=== PATIENT | female | born 1955 | race Caucasian/White ===

== ENCOUNTER → 2019-05-20 | Outpatient (CLI) | payer MEDICAID ==
[~2019-05-20] MED LIST: CALC1TAB72 PO; CYAN100049 PO; DULO1CAP6 PO; ESTR625TA PO; KRIL300C PO; LORA1TAB4 PO; OLAN5TAB PO; PHEN15CA PO; SUPETAB25 PO; TIZA4CAP PO; VITA500046 PO; VITA500T PO; XYZA5TAB2 PO
[2019-05-20 18:17] LABS: HEMOGLOBIN A1c 5.4 %
[2019-05-20 18:24] LABS: ALT/SGPT 19 U/L (12-78); BILIRUBIN,DIRECT 0.1 MG/DL (0.0-0.2); BILIRUBIN,TOTAL 0.3 MG/DL (0.2-1.0); BLOOD UREA NITROGEN 11 MG/DL (7-18); CALCIUM LEVEL 9.6 MG/DL (8.8-10.2); CARBON DIOXIDE LEVEL 28 MEQ/L (21-32); CHLORIDE LEVEL 109 MEQ/L (98-107); CHOLESTEROL LEVEL 298 MG/DL (<200); CHOLESTEROL RISK RATIO 3.634 (<5); CREATININE FOR GFR 0.82 MG/DL (0.55-1.30); GLOMERULAR FILTRATION RATE > 60.0 (>45); GLUCOSE, FASTING 104 MG/DL (70-100); HDL CHOLESTEROL 82 MG/DL (>40); LDL CHOLESTEROL 157 MG/DL (<100); NON-HDL-C 216 MG/DL; POTASSIUM SERUM 4.4 MEQ/L (3.5-5.1); SODIUM LEVEL 143 MEQ/L (136-145); TOTAL PROTEIN 7.1 GM/DL (6.4-8.2); TRIGLYCERIDES LEVEL 296 MG/DL (<150)
== END ==
LOC: M PLALAB 13:26
PROVIDERS: ATTEND Psychiatry & Neurology Psychiatry
DX: F33.1 Major depressive disorder, recurrent, moderate (principal); F41.1 Generalized anxiety disorder; F12.20 Cannabis dependence, uncomplicated

== ENCOUNTER → 2019-10-05 | Outpatient (CLI) | payer MEDICAID, OTHER ==
[~2019-10-05] MED LIST changes: +ARIP1TAB4 PO; +BENA25CA4 PO; +CETI-24 PO; +D31000TA2 PO; +LEVOTAB10 PO; +MULTCAP PO; +RA K500C PO; +SUPETAB56 PO; +VITA-243 PO; +VITA500C24 PO; -VITA500T PO; +ZOLO100T PO
== END ==
LOC: M LABSMTC 11:36
PROVIDERS: ATTEND Anesthesiology
DX: Z01.818 Encounter for other preprocedural examination (principal); Z11.59 Encounter for screening for other viral diseases
CPT/HCPCS: C9803; U0003

== ENCOUNTER 2019-10-10 11:42 | Day surgery (SDC) | payer OTHER ==
[~2019-10-10] VITALS: Ht 154.9 cm; Wt 84.4 kg
[~2019-10-10 11:42] MED LIST changes: +NS 1,000 ML IV ONE
[2019-10-10] MEDS ORDERED: propofoL 200 MG/20 ML VIAL As Ordered ONE ×2 (12:01→12:47)
[2019-10-10] MEDS ORDERED: LIDOCAINE 2% 100MG/5ML SDV (FOR ANES.) As Ordered ONE (12:01)
--- NOTE | 2019-10-10 13:00 | ROOR ---
Patient Name: Selina Andrade Procedure Date: 10/10/2019 12:38 PM Date of : 1955 Age: 64 Room: [facility] Gender: Female Note Status: Finalized Procedure: Colonoscopy Indications: Colon cancer screening in patient at increased risk: Family history of colorectal cancer in multiple 2nd degree relatives Providers: Tee MARK MD Referring MD: Dionna Hurd NP Requesting Provider: Medicines: Monitored Anesthesia Care Complications: No immediate complications. Procedure: Pre-Anesthesia Assessment: - The heart rate, respiratory rate, oxygen saturations, blood pressure, adequacy of pulmonary ventilation, and response to care were monitored throughout the procedure. The Colonoscope was introduced through the anus and advanced to the terminal ileum, with identification of the appendiceal orifice and IC valve. The colonoscopy was performed without difficulty. The patient tolerated the procedure well. The quality of the bowel preparation was good. Findings: The perianal and digital rectal examinations were normal. Three sessile polyps were found in the ascending colon. The polyps were diminutive in size. These polyps were removed with a cold snare. Resection and retrieval were complete. A diminutive polyp was found in the sigmoid colon. The polyp was sessile. The polyp was removed with a cold snare. Resection and retrieval were complete. Small Internal Hemorrhoids. The exam was otherwise without abnormality. Impression: - Three diminutive polyps in the ascending colon, removed with a cold snare. Resected and retrieved. - One diminutive polyp in the sigmoid colon, removed with a cold snare. Resected and retrieved. - Small Internal Hemorrhoids. - The colon examination was otherwise normal. Recommendation: - Repeat colonoscopy in 3 years for surveillance. Tee Mark MD Tee MARK MD 10/10/2019 1:00:09 PM Electronically signed by Tee MARK MD Number of Addenda: 0 Note Initiated On: 10/10/2019 12:38 PM Estimated Blood Loss: Estimated blood loss: none.
[2019-10-10 13:30] VITALS: BP 144/90
== END 2019-10-10 13:42 | disposition home or self-care (01) ==
LOC: M OPP 11:42
PROVIDERS: ATTEND Internal Medicine Gastroenterology
DX: Z12.11 Encounter for screening for malignant neoplasm of colon (principal); D12.2 Benign neoplasm of ascending colon; D12.5 Benign neoplasm of sigmoid colon; K64.8 Other hemorrhoids; Z79.899 Other long term (current) drug therapy; Z88.5 Allergy status to narcotic agent; Z91.018 Allergy to other foods; Z87.891 Personal history of nicotine dependence

== ENCOUNTER → 2020-06-12 | Outpatient (REF) | payer OTHER ==
[~2020-06-12] MED LIST changes: -NS 1,000 ML IV ONE
== END ==
LOC: M LAB REF 17:11
PROVIDERS: ATTEND Physician Assistant
DX: D23.62 Other benign neoplasm of skin of left upper limb, including shoulder (principal); L57.0 Actinic keratosis

== ENCOUNTER → 2020-06-16 | Outpatient (CLI) | payer OTHER ==
--- NOTE | 2020-06-16 16:17 | REPMRS ---
Patient History The patient states she has not had a clinical breast exam in over a year. Family history of colorectal cancer at age 50 or over in maternal grandmother, endometrial cancer at age 25 in mother. Digital Woman Screen Mammo: June 16, 2020 - Exam #: [id number] Bilateral CC and MLO view(s) were taken. Technologist: Margarette Desai, Technologist Prior study comparison: May 20, 2019, bilateral digital mammo screening bilat, performed at [facility]. November 02, 2017, bilateral digital mammo screening bilat, performed at [facility]. July 18, 2016, bilateral digital mammo screening bilat, performed at [facility](ye[facility]. FINDINGS: There are scattered fibroglandular densities. The Volpara volumetric breast density category is: B. There is a moderate amount of residual fibroglandular tissue which is fairly symmetric. There is no interval development of dominant mass, architectural distortion, or grouped microcalcification typical of malignancy. There has been no change in the appearance of the mammogram from the prior studies. 3-D tomosynthesis shows no additional findings. Assessment: BI-RADS/ACR category 1 mammogram. Negative Mammogram. Recommendation Routine screening mammogram of both breasts in 1 year (for women over age 40). This patient's [facility] Lifetime Breast Cancer RIsk is estimated at 5.2 %. This mammogram was interpreted with the aid of an FDA-approved computer-aided dectection system. Electronically Signed By: Gianluca Corea MD 06/16/20 [id number]
== END ==
LOC: M WHC 14:43
PROVIDERS: ATTEND Nurse Practitioner Adult Health
DX: Z12.31 Encounter for screening mammogram for malignant neoplasm of breast (principal)

== ENCOUNTER → 2020-07-10 | Outpatient (REF) | payer OTHER, MEDICAID | LOC: M LAB REF 14:20 | PROVIDERS: ATTEND Dermatology | DX: L90.5 Scar conditions and fibrosis of skin (principal) ==

== ENCOUNTER → 2020-12-14 | Outpatient (REF) | payer OTHER, MEDICAID ==
[~2020-12-14] MED LIST changes: +OLAN1TAB16 PO; -OLAN5TAB PO
== END ==
LOC: M LAB REF 19:26
PROVIDERS: ATTEND Physician Assistant
DX: D23.5 Other benign neoplasm of skin of trunk (principal); L57.0 Actinic keratosis

== ENCOUNTER → 2020-12-14 | Outpatient (REF) | payer OTHER, MEDICAID | LOC: M LAB REF 16:23 | PROVIDERS: ATTEND Nurse Practitioner Adult Health | DX: R35.0 Frequency of micturition (principal) ==

== ENCOUNTER → 2021-02-12 | Outpatient (REF) | payer OTHER, MEDICAID ==
[~2021-02-12] MED LIST changes: -PHEN15CA PO; +PHEN15CA6 PO
== END ==
LOC: M LAB REF 16:31
PROVIDERS: ATTEND Dermatology
DX: D76.3 Other histiocytosis syndromes (principal)

== ENCOUNTER → 2021-06-30 | Outpatient (CLI) | payer OTHER ==
[~2021-06-30] MED LIST changes: -D31000TA2 PO; +VITA100093 PO
== END ==
LOC: M WHC 15:41
PROVIDERS: ATTEND Nurse Practitioner Adult Health
DX: Z12.31 Encounter for screening mammogram for malignant neoplasm of breast (principal); Z80.0 Family history of malignant neoplasm of digestive organs; Z80.49 Family history of malignant neoplasm of other genital organs

== ENCOUNTER → 2021-11-19 | Outpatient (CLI) | payer OTHER, MEDICAID ==
[2021-11-19 16:58] LABS: BASO # 0.1 10^3/uL (0.0-0.2); BASO % 0.6 % (0.0-1.0); EOS # 0.2 10^3/uL (0.0-0.5); EOS % 2.5 % (0.0-3.0); HEMATOCRIT 44.6 % (36.0-47.0); HEMOGLOBIN 14.6 g/dl (12.0-15.5); LYMPH # 3.1 10^3/uL (1.5-5.0); LYMPH % 33.9 % (24.0-44.0); MEAN CORPUSCULAR HEMOGLOBIN 29.9 pg (27.0-33.0); MEAN CORPUSCULAR HGB CONC 32.7 g/dl (32.0-36.5); MEAN CORPUSCULAR VOLUME 91.2 fl (80.0-96.0); MONO # 0.5 10^3/uL (0.0-0.8); MONO % 5.2 % (2.0-8.0); NEUTROPHILS # 5.2 10^3/uL (1.5-8.5); NEUTROPHILS % 57.2 % (36.0-66.0); PLATELET COUNT, AUTOMATED 200 10^3/uL (150-450); RED BLOOD COUNT 4.89 10^6/uL (4.00-5.40)
[2021-11-19 17:23] LABS: HEMOGLOBIN A1c 5.3 %
[2021-11-19 17:30] LABS: ALBUMIN 3.6 GM/DL (3.2-5.2); ALT/SGPT 23 U/L (12-78); BILIRUBIN,DIRECT 0.1 MG/DL (0.0-0.2); BILIRUBIN,TOTAL 0.2 MG/DL (0.2-1.0); BLOOD UREA NITROGEN 26 MG/DL (7-18); CALCIUM LEVEL 9.3 MG/DL (8.8-10.2); CARBON DIOXIDE LEVEL 25 MEQ/L (21-32); CHLORIDE LEVEL 110 MEQ/L (98-107); CHOLESTEROL LEVEL 148 MG/DL (<200); CHOLESTEROL RISK RATIO 2.027 (<5); CREATININE FOR GFR 0.97 MG/DL (0.55-1.30); GLOMERULAR FILTRATION RATE > 60.0 (>45); GLUCOSE, FASTING 93 MG/DL (70-100); HDL CHOLESTEROL 73 MG/DL (>40); LDL CHOLESTEROL 49 MG/DL (<100); NON-HDL-C 75 MG/DL; POTASSIUM SERUM 3.8 MEQ/L (3.5-5.1); SODIUM LEVEL 140 MEQ/L (136-145); TOTAL PROTEIN 6.7 GM/DL (6.4-8.2); TRIGLYCERIDES LEVEL 131 MG/DL (<150)
== END ==
LOC: M PLALAB 14:50
PROVIDERS: ATTEND Psychiatry & Neurology Psychiatry
DX: F41.1 Generalized anxiety disorder (principal); F33.1 Major depressive disorder, recurrent, moderate; F12.20 Cannabis dependence, uncomplicated

== ENCOUNTER → 2022-01-07 | Outpatient (CLI) | payer OTHER, MEDICAID | LOC: M WUC 15:46 | PROVIDERS: ATTEND Physician Assistant Medical | DX: M25.531 Pain in right wrist (principal); M19.031 Primary osteoarthritis, right wrist ==

== ENCOUNTER → 2022-06-07 | Outpatient (CLI) | payer MEDICARE, MEDICAID | LOC: M WUC 14:19 | PROVIDERS: ATTEND Nurse Practitioner Family | DX: R06.02 Shortness of breath (principal); R05.9 Cough, unspecified; R09.89 Other specified symptoms and signs involving the circulatory and respiratory systems ==

== ENCOUNTER → 2022-06-08 | Outpatient (REF) | payer MEDICARE, MEDICAID, OTHER | LOC: M LAB REF 14:31 | PROVIDERS: ATTEND Nurse Practitioner Family | DX: R06.02 Shortness of breath (principal); R05.9 Cough, unspecified ==

== ENCOUNTER → 2022-07-11 | Outpatient (REF) | payer MEDICARE, MEDICAID | LOC: M SFHCDERM 17:43 | PROVIDERS: ATTEND Physician Assistant | DX: D22.72 Melanocytic nevi of left lower limb, including hip (principal) ==

== ENCOUNTER → 2022-07-13 | Outpatient (CLI) | payer MEDICARE, MEDICAID | LOC: M WHC 14:00 | PROVIDERS: ATTEND Nurse Practitioner Adult Health | DX: Z12.31 Encounter for screening mammogram for malignant neoplasm of breast (principal) ==

== ENCOUNTER → 2022-08-02 | Outpatient (REF) | payer MEDICARE, MEDICAID, OTHER ==
[~2022-08-02] MED LIST changes: +LORA1TAB23 PO; -LORA1TAB4 PO
== END ==
LOC: M SFHCDERM 13:59
PROVIDERS: ATTEND Physician Assistant
DX: L98.499 Non-pressure chronic ulcer of skin of other sites with unspecified severity (principal); L90.5 Scar conditions and fibrosis of skin

== ENCOUNTER → 2023-01-03 | Outpatient (CLI) | payer MEDICARE, MEDICAID, OTHER | LOC: M WUC 10:55 | PROVIDERS: ATTEND Nurse Practitioner Adult Health | DX: M19.042 Primary osteoarthritis, left hand (principal); M25.532 Pain in left wrist ==

== ENCOUNTER → 2023-01-17 | Outpatient (REF) | payer MEDICARE, MEDICAID, OTHER ==
[2023-01-17 18:58] LABS: HEPATITIS B CORE ANTIBODY IGM NEGATIVE (NEGATIVE)
[2023-01-17 18:59] LABS: HEPATITIS C VIRUS ABY INDEX 0.05 INDEX (<0.8)
[2023-01-17 19:33] LABS: RHEUMATOID FACTOR QUANT 5.7 IU/ML (<14)
== END ==
LOC: M LAB REF 16:40
PROVIDERS: ATTEND Nurse Practitioner Adult Health
DX: M79.642 Pain in left hand (principal); M25.532 Pain in left wrist

== ENCOUNTER → 2023-02-24 | Outpatient (CLI) | payer MEDICARE, MEDICAID ==
[~2023-02-24] MED LIST changes: +ROSU5TAB5 PO; +VRAY1.5C PO
== END ==
LOC: M RAD 13:15
PROVIDERS: ATTEND Physician Assistant Medical
DX: R19.00 Intra-abdominal and pelvic swelling, mass and lump, unspecified site (principal)

== ENCOUNTER 2023-03-02 06:53 | Day surgery (SDC) | payer MEDICARE, MEDICAID ==
[~2023-03-02] VITALS: Ht 154.9 cm; Wt 91.9 kg
[~2023-03-02 06:53] MED LIST changes: +NS 1,000 ML IV ONE
[2023-03-02] MEDS ORDERED: propofoL 200 MG/20 ML VIAL As Ordered ONE ×2 (08:07→08:08)
[2023-03-02] MEDS ORDERED: GLYCOPYRROLATE INJ 0.2 MG/ML 2 ML VIAL As Ordered ONE (08:07)
[2023-03-02 08:21] VITALS: TEMP 97.4
[2023-03-02 08:41] VITALS: BP 120/59; O2SAT 98
== END 2023-03-02 08:54 | disposition home or self-care (01) ==
LOC: M OPP 06:53
PROVIDERS: ATTEND Internal Medicine Gastroenterology
DX: Z86.010 Personal history of colon polyps (principal); Z80.0 Family history of malignant neoplasm of digestive organs; D12.3 Benign neoplasm of transverse colon; D12.8 Benign neoplasm of rectum; K57.30 Diverticulosis of large intestine without perforation or abscess without bleeding; K64.8 Other hemorrhoids; F17.200 Nicotine dependence, unspecified, uncomplicated; Z79.810 Long term (current) use of selective estrogen receptor modulators (SERMs); Z79.891 Long term (current) use of opiate analgesic; Z79.899 Other long term (current) drug therapy; Z88.5 Allergy status to narcotic agent; Z91.018 Allergy to other foods

== ENCOUNTER → 2023-05-15 | Outpatient (CLI) | payer MEDICARE, MEDICAID ==
[~2023-05-15] MED LIST changes: +GASTROGRAFIN SOLUTION 30ML As Ordered ONE; +ISOVUE-370 76% 100ML VIAL As Ordered ONE; -NS 1,000 ML IV ONE
== END ==
LOC: M RAD 13:27
PROVIDERS: ATTEND Nurse Practitioner Family
DX: R10.9 Unspecified abdominal pain (principal)
CPT/HCPCS: 74177; Q9963; Q9967

== ENCOUNTER → 2024-02-09 | Outpatient (CLI) | payer MEDICARE ==
[~2024-02-09] MED LIST changes: -GASTROGRAFIN SOLUTION 30ML As Ordered ONE; -ISOVUE-370 76% 100ML VIAL As Ordered ONE; +ROSU5TAB49 PO; -ROSU5TAB5 PO
== END ==
LOC: M RAD 13:14
PROVIDERS: ATTEND Nurse Practitioner Adult Health
DX: Z12.2 Encounter for screening for malignant neoplasm of respiratory organs (principal); F17.210 Nicotine dependence, cigarettes, uncomplicated

== ENCOUNTER → 2024-06-27 | Outpatient (CLI) | payer MEDICARE | LOC: M RAD 16:59 | PROVIDERS: ATTEND Physician Assistant | DX: J32.8 Other chronic sinusitis (principal) ==

== ENCOUNTER 2024-07-13 17:27 | Emergency (ER) | payer MEDICARE, MEDICAID ==
[~2024-07-13] VITALS: Ht 157.5 cm; Wt 94.1 kg
[2024-07-13 18:28] LABS: VENOUS BASE EXCESS -0.9 (-2.0-2.0); VENOUS HCO3 25.4 MMOL/L (23.0-27.0); VENOUS O2 SATURATION 89.2 % (60.0-80.0); VENOUS PARTIAL PRESSURE CO2 48.1 mmHg (38.0-50.0); VENOUS PARTIAL PRESSURE O2 58.4 mmHg (30.0-50.0); VENOUS STANDARD HCO3 23.6 MMOL/L; VENOUS TOTAL CO2 26.8 MMOL/L (24.0-28.0)
[2024-07-13] MEDS ORDERED: predniSONE 20 MG TAB PO ONE (18:30)
[2024-07-13] MEDS: dexAMETHasone 20MG/5ML VIAL IV ONE (18:35)
[2024-07-13 18:37] LABS: BASO % 0.2 % (0.0-1.0); HEMATOCRIT 36.6 % (36.0-47.0); HEMOGLOBIN 12.7 g/dl (12.0-15.5); LYMPH % 8.2 % (24.0-44.0); MEAN CORPUSCULAR HEMOGLOBIN 30.6 pg (27.0-33.0); MEAN CORPUSCULAR HGB CONC 34.7 g/dl (32.0-36.5); MEAN CORPUSCULAR VOLUME 88.2 fl (80.0-96.0); MONO # 0.6 10^3/uL (0.0-0.8); NEUTROPHILS # 10.2 10^3/uL (1.5-8.5); PLATELET COUNT, AUTOMATED 203 10^3/uL (150-450); RED BLOOD COUNT 4.15 10^6/uL (4.00-5.40); WHITE BLOOD COUNT 11.9 10^3/uL (4.0-10.0)
[2024-07-13 18:57] LABS: CK-MB VALUE MASS < 1.0 NG/ML (<3.6)
[2024-07-13 18:59] LABS: CPK CREATINE PHOSPHOKINASE 173 U/L (34-145); MB/CK RELATIVE INDEX 0.57 (< OR =4)
[2024-07-13 19:00] LABS: ALBUMIN 3.1 G/DL (3.2-5.2); ALKALINE PHOSPHATASE 71 U/L (35-104); ALT/SGPT 20 U/L (7.0-40); AST/SGOT 18 U/L (<34); BILIRUBIN,DIRECT 0.2 MG/DL (<0.4); BILIRUBIN,TOTAL 0.5 MG/DL (0.3-1.2); BLOOD UREA NITROGEN 13 MG/DL (9-23); CALCIUM LEVEL 8.8 MG/DL (8.3-10.6); CARBON DIOXIDE LEVEL 24 MMOL/L (20-31); CHLORIDE LEVEL 102 MMOL/L (98-107); CREATININE FOR GFR 0.76 MG/DL (0.55-1.30); GLOMERULAR FILTRATION RATE 85.8 (>45); GLUCOSE, FASTING 130 MG/DL (74-106); POTASSIUM SERUM 3.9 MMOL/L (3.5-5.1); SODIUM LEVEL 133 MMOL/L (136-145); TOTAL PROTEIN 6.7 G/DL (5.7-8.2)
[2024-07-13 19:01] LABS: THYROXINE (T4) 9.2 UG/DL (4.5-10.9)
[2024-07-13 19:02] LABS: THYROID STIMULATING HORMONE 0.508 uIU/ML (0.55-4.78)
[2024-07-13] MEDS: IPRATROPIUM 0.5MG/ALBUTEROL 2.5MG INH SOL UD 3ML NEB SCH (19:05)
[2024-07-13] MEDS ORDERED: DOXY-442 PO (20:56)
[2024-07-13] MEDS ORDERED: ALBU2.5V10 NEB (20:56)
[2024-07-13] MEDS ORDERED: NEBU1EAC78 MC (20:56)
[2024-07-13] MEDS: DOXYCYCLINE HYCLATE 100MG TABLET PO ONE (20:58)
[2024-07-13] MEDS: AUGMENTIN 875 MG TAB PO ONE (20:58)
[2024-07-13 21:52] VITALS: BP 131/71; TEMP 98.6; O2SAT 91
== END 2024-07-13 21:54 | disposition home or self-care (01) ==
LOC: M ED 17:27
DX: J44.1 Chronic obstructive pulmonary disease with (acute) exacerbation (principal); J18.9 Pneumonia, unspecified organism; F17.200 Nicotine dependence, unspecified, uncomplicated; Z79.899 Other long term (current) drug therapy; Z88.5 Allergy status to narcotic agent; Z88.8 Allergy status to other drugs, medicaments and biological substances; Z91.018 Allergy to other foods
CPT/HCPCS: 71045; 80048; 80076; 82550; 82553; 82803; 83605; 83880; 84436; 84443; 84484; 85025; 87040; 87486; 87581; 87633; 87798; 93005; 93041; 94640; 94760; 96374; 99284; J1100

== ENCOUNTER 2024-07-18 16:00 | Inpatient (IN) | payer MEDICARE, MEDICAID ==
[~2024-07-18] VITALS: Ht 157.5 cm; Wt 92.4 kg
[~2024-07-18 16:00] MED LIST changes: +ALBU2.5V10 NEB; +DOXY-442 PO; +NEBU1EAC78 MC
[2024-07-18 16:52] LABS: BASO # 0.1 10^3/uL (0.0-0.2); BASO % 0.4 % (0.0-1.0); EOS # 0.1 10^3/uL (0.0-0.5); EOS % 0.5 % (0.0-3.0); HEMATOCRIT 36.5 % (36.0-47.0); HEMOGLOBIN 12.6 g/dl (12.0-15.5); LYMPH # 2.3 10^3/uL (1.5-5.0); LYMPH % 11.9 % (24.0-44.0); MEAN CORPUSCULAR HEMOGLOBIN 29.9 pg (27.0-33.0); MEAN CORPUSCULAR HGB CONC 34.5 g/dl (32.0-36.5); MEAN CORPUSCULAR VOLUME 86.7 fl (80.0-96.0); MONO # 1.2 10^3/uL (0.0-0.8); MONO % 6.3 % (2.0-8.0); NEUTROPHILS # 14.5 10^3/uL (1.5-8.5); NEUTROPHILS % 76.2 % (36.0-66.0); PLATELET COUNT, AUTOMATED 281 10^3/uL (150-450); RED BLOOD COUNT 4.21 10^6/uL (4.00-5.40)
[2024-07-18 17:05] LABS: INR 1.16; PROTHROMBIN TIME 15.1 SECONDS (12.5-14.5)
[2024-07-18] MEDS ORDERED: ISOVUE-370 76% 100ML VIAL As Ordered ONE (17:08)
[2024-07-18] MEDS: ALBUTEROL SULFATE 2.5MG/0.5ML INH CONCENTRATE NEB SOLN INH ONE (17:10)
[2024-07-18] MEDS: IPRATROPIUM 0.5MG/ALBUTEROL 2.5MG INH SOL UD 3ML NEB ONE (17:10)
[2024-07-18 17:27] LABS: ALBUMIN 2.5 G/DL (3.2-5.2); ALKALINE PHOSPHATASE 97 U/L (35-104); ALT/SGPT 47 U/L (7.0-40); AST/SGOT 40 U/L (<34); BILIRUBIN,DIRECT 0.1 MG/DL (<0.4); BILIRUBIN,TOTAL 0.3 MG/DL (0.3-1.2); BLOOD UREA NITROGEN 20 MG/DL (9-23); CALCIUM LEVEL 8.6 MG/DL (8.3-10.6); CARBON DIOXIDE LEVEL 25 MMOL/L (20-31); CHLORIDE LEVEL 102 MMOL/L (98-107); CK-MB VALUE MASS < 1.0 NG/ML (<3.6); CREATININE FOR GFR 0.81 MG/DL (0.55-1.30); GLOMERULAR FILTRATION RATE 79.5 (>45); GLUCOSE, FASTING 116 MG/DL (74-106); POTASSIUM SERUM 3.3 MMOL/L (3.5-5.1); SODIUM LEVEL 133 MMOL/L (136-145)
[2024-07-18 17:28] LABS: THYROXINE (T4) 8.5 UG/DL (4.5-10.9)
[2024-07-18 17:29] LABS: THYROID STIMULATING HORMONE 1.649 uIU/ML (0.55-4.78)
[2024-07-18 17:31] LABS: ABG BASE EXCESS 0.2 (-2.0-2.0); ABG O2 SATURATION 91.9 % (95.0-99.0); ABG PARTIAL PRESSURE CO2 36.2 mmHg (35.0-45.0); ABG PARTIAL PRESSURE O2 63.1 mmHg (75.0-100.0); ABG STANDARD HCO3 24.5 MMOL/L. (22.0-26.0); ABG TOTAL CO2 25.1 MMOL/L (23.0-31.0); ABG pH (ARTERIAL) 7.439 UNITS (7.350-7.450)
[2024-07-18 17:36] LABS: CPK CREATINE PHOSPHOKINASE 238 U/L (34-145); MB/CK RELATIVE INDEX 0.42 (< OR =4)
[2024-07-18] MEDS: NS (Normal Saline) 0.9% 1,000 ML IV ONE (17:40)
[2024-07-18] MEDS: methylPREDNISolone 125MG 2ML VIAL IV ONE (17:40)
[2024-07-18] MEDS: ACETAMINOPHEN *IV* 1,000 MG in IV 1 EA IV ONE (17:40)
[2024-07-18] MEDS: CEFEPIME HCL 2 GM in DEXTROSE 5% (D5W) ADV/MINI-BAG 50 ML IV ONE (17:59)
[2024-07-18] MEDS: LevoFLOXacin IV 750 MG in IV 1 EA IV ONE (18:37)
[2024-07-18] MEDS: POTASSIUM CHLORIDE 10MEQ SR TABLET PO ONE (18:38)
[2024-07-18 18:40] LABS: CK-MB VALUE MASS < 1.0 NG/ML (<3.6)
[2024-07-18 18:41] LABS: CPK CREATINE PHOSPHOKINASE 210 U/L (34-145); MB/CK RELATIVE INDEX 0.47 (< OR =4)
[2024-07-18] MEDS ORDERED: TREL1AER INH (19:33)
[2024-07-18] MEDS ORDERED: DOXY-441 PO (19:33)
[2024-07-18] MEDS ORDERED: AMOX875T2 PO (20:01)
[2024-07-18] MEDS ORDERED: ALBU8.5H INH (20:09)
[2024-07-18] MEDS ORDERED: ATIV1TAB7 PO (20:13)
[2024-07-18] MEDS ORDERED: NYST1POW3 TOP (20:13)
[2024-07-18] MEDS ORDERED: TIZA4CAP PO (20:14)
[2024-07-18] MEDS ORDERED: HOME MED LIST COMPLETE! XX SCH (20:25)
[2024-07-18] MEDS ORDERED: MOM 30ML SUSPENSION UDC PO PRN (22:50)
[2024-07-18] MEDS ORDERED: LORazepam 1 MG TAB PO PRN (22:55)
[2024-07-18] MEDS ORDERED: tiZANidine 4 MG TAB PO PRN (22:55)
[2024-07-18] MEDS ORDERED: PILL CUTTER 1 EACH XX PRN (23:05)
[2024-07-19] VITALS (27 sets, daily range): BP systolic 107–147; BP diastolic 51–71; TEMP 96.6–98.3; O2SAT 82–98
[2024-07-19] MEDS: methylPREDNISolone 125MG 2ML VIAL IV SCH (01:09)
[2024-07-19] MEDS: CEFEPIME HCL 2 GM in DEXTROSE 5% (D5W) ADV/MINI-BAG 50 ML IV SCH (01:09)
[2024-07-19] MEDS: SERTRALINE 100 MG TAB PO SCH (01:11)
[2024-07-19] MEDS: tiZANidine 4 MG TAB PO SCH (01:11)
[2024-07-19] MEDS: ROSUVASTATIN 10 MG TAB (CRESTOR) PO SCH (01:11)
[2024-07-19] MEDS: CETIRIZINE (ZyrTEC) 10 MG TAB PO SCH (01:11)
[2024-07-19] MEDS: CARIPRAZINE 1.5MG CAPSULE (VRAYLAR) PO SCH (01:12)
[2024-07-19] MEDS: LORazepam 2 MG TAB PO SCH (01:15)
[2024-07-19] MEDS: ALBUTEROL SULFATE 2.5MG/0.5ML INH CONCENTRATE NEB SOLN INH SCH (02:00)
[2024-07-19] MEDS: IPRATROPIUM 0.5MG/ALBUTEROL 2.5MG INH SOL UD 3ML INH SCH (02:14)
[2024-07-19 05:47] LABS: HEMATOCRIT 34.9 % (36.0-47.0); HEMOGLOBIN 11.8 g/dl (12.0-15.5); MEAN CORPUSCULAR HEMOGLOBIN 29.7 pg (27.0-33.0); MEAN CORPUSCULAR HGB CONC 33.8 g/dl (32.0-36.5); MEAN CORPUSCULAR VOLUME 87.9 fl (80.0-96.0); PLATELET COUNT, AUTOMATED 294 10^3/uL (150-450); RED BLOOD COUNT 3.97 10^6/uL (4.00-5.40); WHITE BLOOD COUNT 17.9 10^3/uL (4.0-10.0)
[2024-07-19 06:13] LABS: ALBUMIN 2.3 G/DL (3.2-5.2); ALKALINE PHOSPHATASE 89 U/L (35-104); ALT/SGPT 43 U/L (7.0-40); AST/SGOT 25 U/L (<34); BILIRUBIN,TOTAL 0.3 MG/DL (0.3-1.2); BLOOD UREA NITROGEN 17 MG/DL (9-23); CALCIUM LEVEL 8.5 MG/DL (8.3-10.6); CARBON DIOXIDE LEVEL 24 MMOL/L (20-31); CHLORIDE LEVEL 108 MMOL/L (98-107); CREATININE FOR GFR 0.66 MG/DL (0.55-1.30); GLOMERULAR FILTRATION RATE > 90.0 (>45); GLUCOSE, FASTING 167 MG/DL (74-106); POTASSIUM SERUM 3.8 MMOL/L (3.5-5.1); SODIUM LEVEL 139 MMOL/L (136-145); TOTAL PROTEIN 5.6 G/DL (5.7-8.2)
[2024-07-19] MEDS: TIOTROPIUM BROM 2.5MCG/ACTUATION 4GM INH IH SCH (08:00)
[2024-07-19] MEDS: SYMBICORT 160/4.5MCG INHALER 6GM INH SCH (08:24)
[2024-07-19] MEDS: ENOXAPARIN 40MG/0.4ML SYRINGE (J1650 PER 10MG) SC SCH (09:45)
[2024-07-19] MEDS: NYSTATIN 100,000 UNITS/GM TOPICAL PWD 15GM TOP SCH (09:46)
[2024-07-19] MEDS: DOCUSATE SODIUM 100MG CAPSULE PO SCH (09:46)
[2024-07-19] MEDS: PANTOPRAZOLE 40MG VIAL IV SCH (09:46)
[2024-07-19 10:27] LABS: PROCALCITONIN 0.09 ng/ml
[2024-07-19] MEDS: AZITHROMYCIN 250MG TABLET PO SCH (11:49)
[2024-07-19] MEDS: guaiFENesin ER TABLET 600 MG TAB PO SCH (13:04)
[2024-07-19] MEDS: methylPREDNISolone 40MG 1ML VIAL IV SCH (21:31)
[2024-07-20] VITALS (18 sets, daily range): BP systolic 112–155; BP diastolic 53–71; TEMP 97–98; O2SAT 90–97
[2024-07-20 05:07] LABS: BASO # 0.1 10^3/uL (0.0-0.2); BASO % 0.2 % (0.0-1.0); EOS % 0.1 % (0.0-3.0); HEMATOCRIT 33.9 % (36.0-47.0); HEMOGLOBIN 11.4 g/dl (12.0-15.5); LYMPH # 2.4 10^3/uL (1.5-5.0); LYMPH % 11.3 % (24.0-44.0); MEAN CORPUSCULAR HEMOGLOBIN 29.9 pg (27.0-33.0); MEAN CORPUSCULAR HGB CONC 33.6 g/dl (32.0-36.5); MONO # 0.9 10^3/uL (0.0-0.8); MONO % 4.1 % (2.0-8.0); NEUTROPHILS % 79.5 % (36.0-66.0); PLATELET COUNT, AUTOMATED 288 10^3/uL (150-450); RED BLOOD COUNT 3.81 10^6/uL (4.00-5.40); WHITE BLOOD COUNT 21.4 10^3/uL (4.0-10.0)
[2024-07-20 05:19] LABS: CALCIUM LEVEL 8.5 MG/DL (8.3-10.6); CREATININE FOR GFR 0.75 MG/DL (0.55-1.30); GLOMERULAR FILTRATION RATE 87.2 (>45); POTASSIUM SERUM 3.9 MMOL/L (3.5-5.1)
[2024-07-20] MEDS: BENZONATATE 100MG CAPSULE PO SCH (10:40)
[2024-07-20] MEDS: ACETAMINOPHEN 325 MG TAB PO PRN (13:12)
[2024-07-20] MEDS: guaiFENesin SYRUP 200MG 10ML UDC PO PRN (18:29)
[2024-07-21] VITALS (16 sets, daily range): BP systolic 115–168; BP diastolic 57–79; TEMP 97–97.7; O2SAT 89–96
[2024-07-21 05:07] LABS: BASO % 0.3 % (0.0-1.0); EOS % 0.2 % (0.0-3.0); HEMATOCRIT 34.5 % (36.0-47.0); HEMOGLOBIN 11.5 g/dl (12.0-15.5); LYMPH # 3.1 10^3/uL (1.5-5.0); LYMPH % 19.6 % (24.0-44.0); MEAN CORPUSCULAR HEMOGLOBIN 29.6 pg (27.0-33.0); MEAN CORPUSCULAR HGB CONC 33.3 g/dl (32.0-36.5); MEAN CORPUSCULAR VOLUME 88.7 fl (80.0-96.0); MONO # 0.7 10^3/uL (0.0-0.8); MONO % 4.5 % (2.0-8.0); NEUTROPHILS # 11.4 10^3/uL (1.5-8.5); NEUTROPHILS % 71.1 % (36.0-66.0); PLATELET COUNT, AUTOMATED 323 10^3/uL (150-450); RED BLOOD COUNT 3.89 10^6/uL (4.00-5.40)
[2024-07-21 05:35] LABS: BLOOD UREA NITROGEN 25 MG/DL (9-23); CALCIUM LEVEL 8.7 MG/DL (8.3-10.6); CARBON DIOXIDE LEVEL 25 MMOL/L (20-31); CHLORIDE LEVEL 110 MMOL/L (98-107); GLOMERULAR FILTRATION RATE > 90.0 (>45); GLUCOSE, FASTING 110 MG/DL (74-106); POTASSIUM SERUM 4.4 MMOL/L (3.5-5.1); SODIUM LEVEL 142 MMOL/L (136-145)
[2024-07-22 05:06] VITALS: BP 142/67; TEMP 97.3; O2SAT 93
[2024-07-22 06:11] LABS: BASO % 0.3 % (0.0-1.0); EOS # 0.1 10^3/uL (0.0-0.5); EOS % 0.6 % (0.0-3.0); HEMATOCRIT 35.5 % (36.0-47.0); HEMOGLOBIN 11.9 g/dl (12.0-15.5); LYMPH # 4.4 10^3/uL (1.5-5.0); MEAN CORPUSCULAR HEMOGLOBIN 30.1 pg (27.0-33.0); MEAN CORPUSCULAR HGB CONC 33.5 g/dl (32.0-36.5); MEAN CORPUSCULAR VOLUME 89.6 fl (80.0-96.0); MONO # 0.7 10^3/uL (0.0-0.8); MONO % 4.9 % (2.0-8.0); NEUTROPHILS % 58.1 % (36.0-66.0); PLATELET COUNT, AUTOMATED 290 10^3/uL (150-450); RED BLOOD COUNT 3.96 10^6/uL (4.00-5.40); WHITE BLOOD COUNT 13.8 10^3/uL (4.0-10.0)
[2024-07-22 06:35] LABS: CALCIUM LEVEL 8.5 MG/DL (8.3-10.6); CREATININE FOR GFR 0.76 MG/DL (0.55-1.30); GLOMERULAR FILTRATION RATE 85.8 (>45); POTASSIUM SERUM 4.1 MMOL/L (3.5-5.1)
[2024-07-22] MEDS: predniSONE 20 MG TAB PO SCH (09:08)
[2024-07-22] MEDS ORDERED: LEVO1TAB40 PO (09:29)
[2024-07-22] MEDS ORDERED: PRED10TA2 PO (09:29)
[2024-07-22] MEDS ORDERED: IPRA0.00 INH (09:40)
[2024-07-22] MEDS ORDERED: PRED20TA PO (09:40)
[2024-07-22 09:46] VITALS: BP 143/69; TEMP 97.9; O2SAT 93
== END 2024-07-22 14:30 | disposition home health service (06) | DRG 871 ==
LOC: M ED 16:00 → M ED INP 22:48 → M PCU 07-19 00:43 → M MS5PR 07-21 22:38
PROVIDERS: ADMIT Family Medicine; ATTEND Internal Medicine
DX: A41.9 Sepsis, unspecified organism (principal); J18.9 Pneumonia, unspecified organism; J96.01 Acute respiratory failure with hypoxia; J44.1 Chronic obstructive pulmonary disease with (acute) exacerbation; J44.0 Chronic obstructive pulmonary disease with (acute) lower respiratory infection; F32.A Depression, unspecified; E78.5 Hyperlipidemia, unspecified; F41.9 Anxiety disorder, unspecified; K21.9 Gastro-esophageal reflux disease without esophagitis; G43.909 Migraine, unspecified, not intractable, without status migrainosus; F17.200 Nicotine dependence, unspecified, uncomplicated; Z88.5 Allergy status to narcotic agent; Z91.018 Allergy to other foods; Z88.8 Allergy status to other drugs, medicaments and biological substances; Z79.899 Other long term (current) drug therapy; Z91.038 Other insect allergy status; M62.830 Muscle spasm of back

== ENCOUNTER 2024-08-09 22:01 | Observation (INO) | payer MEDICAID, MEDICARE ==
[~2024-08-09] VITALS: Ht 172.7 cm; Wt 95.4 kg
[~2024-08-09 22:01] MED LIST changes: +ALBU8.5H INH; +AMOX875T2 PO; +ATIV1TAB7 PO; +DOXY-441 PO; +IPRA0.00 INH; +LEVO1TAB40 PO; +NYST1POW3 TOP; +PRED10TA2 PO; +PRED20TA PO; +TREL1AER INH
[2024-08-09 22:55] LABS: BASO % 0.2 % (0.0-1.0); EOS # 0.3 10^3/uL (0.0-0.5); EOS % 2.2 % (0.0-3.0); HEMATOCRIT 39.7 % (36.0-47.0); HEMOGLOBIN 13.2 g/dl (12.0-15.5); LYMPH # 3.8 10^3/uL (1.5-5.0); LYMPH % 30.6 % (24.0-44.0); MEAN CORPUSCULAR HEMOGLOBIN 29.9 pg (27.0-33.0); MEAN CORPUSCULAR HGB CONC 33.2 g/dl (32.0-36.5); MEAN CORPUSCULAR VOLUME 89.8 fl (80.0-96.0); MONO # 0.8 10^3/uL (0.0-0.8); MONO % 6.4 % (2.0-8.0); NEUTROPHILS # 7.3 10^3/uL (1.5-8.5); NEUTROPHILS % 59.3 % (36.0-66.0); PLATELET COUNT, AUTOMATED 272 10^3/uL (150-450); RED BLOOD COUNT 4.42 10^6/uL (4.00-5.40); WHITE BLOOD COUNT 12.3 10^3/uL (4.0-10.0)
[2024-08-09 23:18] LABS: ETHYL ALCOHOL (ETHANOL) < 0.003 % (0.000-0.010)
[2024-08-09 23:19] LABS: BLOOD UREA NITROGEN 14 MG/DL (9-23); CALCIUM LEVEL 9.2 MG/DL (8.3-10.6); CARBON DIOXIDE LEVEL 26 MMOL/L (20-31); CHLORIDE LEVEL 106 MMOL/L (98-107); CREATININE FOR GFR 0.76 MG/DL (0.55-1.30); GLOMERULAR FILTRATION RATE 85.8 (>45); GLUCOSE, FASTING 102 MG/DL (74-106); MAGNESIUM LEVEL 1.8 MG/DL (1.8-2.4); POTASSIUM SERUM 4.3 MMOL/L (3.5-5.1); SODIUM LEVEL 141 MMOL/L (136-145)
[2024-08-10] MEDS: SCOPOLAMINE 1MG TRANSDERMAL PATCH TOP SCH (01:08)
[2024-08-10] MEDS: ACETAMINOPHEN *IV* 1,000 MG in IV 1 EA IV ONE (01:08)
[2024-08-10] MEDS: NS (Normal Saline) 0.9% 1,000 ML IV ONE (02:15)
[2024-08-10] MEDS: MECLIZINE 25 MG TABLET PO ONE (03:37)
[2024-08-10] MEDS ORDERED: LIDOCAINE 5% (LIDODERM) PATCH TD PRN (04:45)
[2024-08-10] MEDS ORDERED: MAALOX 30 ML SUSP *UDC PO PRN (04:50)
[2024-08-10] MEDS ORDERED: ACETAMINOPHEN 325 MG TAB PO PRN (04:50)
[2024-08-10] MEDS ORDERED: MOM 30ML SUSPENSION UDC PO PRN (04:50)
[2024-08-10] MEDS: HYDROMORPHONE HCL 0.5 MG/ 0.5 ML SYRINGE IV PRN (05:34)
[2024-08-10 06:03] VITALS: BP 137/94; TEMP 97.9; O2SAT 95
[2024-08-10 06:11] LABS: AMPHETAMINES LEVEL URINE NEGATIVE (NEGATIVE)
[2024-08-10 06:12] LABS: BARBITURATES URINE NEGATIVE (NEGATIVE); COCAINE METABOLITE URINE NEGATIVE (NEGATIVE); METHADONE URINE NEGATIVE (NEGATIVE); OPIATES URINE NEGATIVE (NEGATIVE); PHENCYCLIDINE URINE NEGATIVE (NEGATIVE)
[2024-08-10 06:23] LABS: BENZODIAZEPINES URINE POSITIVE (NEGATIVE); CANNABINOIDS URINE POSITIVE (NEGATIVE)
[2024-08-10 07:13] LABS: HEMATOCRIT 36.9 % (36.0-47.0); HEMOGLOBIN 12.2 g/dl (12.0-15.5); MEAN CORPUSCULAR HEMOGLOBIN 29.5 pg (27.0-33.0); MEAN CORPUSCULAR HGB CONC 33.1 g/dl (32.0-36.5); MEAN CORPUSCULAR VOLUME 89.1 fl (80.0-96.0); PLATELET COUNT, AUTOMATED 182 10^3/uL (150-450); RED BLOOD COUNT 4.14 10^6/uL (4.00-5.40); WHITE BLOOD COUNT 10.4 10^3/uL (4.0-10.0)
[2024-08-10 07:30] LABS: ALKALINE PHOSPHATASE 56 U/L (35-104); ALT/SGPT 21 U/L (7.0-40); AST/SGOT 11 U/L (<34); BILIRUBIN,TOTAL 0.4 MG/DL (0.3-1.2); BLOOD UREA NITROGEN 15 MG/DL (9-23); CALCIUM LEVEL 8.4 MG/DL (8.3-10.6); CARBON DIOXIDE LEVEL 25 MMOL/L (20-31); CHLORIDE LEVEL 108 MMOL/L (98-107); GLOMERULAR FILTRATION RATE > 90.0 (>45); GLUCOSE, FASTING 97 MG/DL (74-106); POTASSIUM SERUM 3.8 MMOL/L (3.5-5.1); SODIUM LEVEL 141 MMOL/L (136-145); TOTAL PROTEIN 5.5 G/DL (5.7-8.2)
[2024-08-10] MEDS: NICOTINE 21MG/24HR 1 EA TRANSDERMAL TD SCH (08:57)
[2024-08-10] MEDS: DOCUSATE SODIUM 100MG CAPSULE PO SCH (08:57)
[2024-08-10] MEDS: PERCOCET 5MG/325MG TAB PO PRN ×2 (09:33→13:38)
[2024-08-10 11:39] VITALS: BP 138/62; TEMP 97.9; O2SAT 92
[2024-08-10] MEDS: KETOROLAC 30 MG/ML 1ML VIAL IV PRN (12:23)
[2024-08-10] MEDS ORDERED: IPRA0.00 INH (12:36)
[2024-08-10] MEDS ORDERED: HOME MED LIST COMPLETE! XX SCH (12:40)
[2024-08-10] MEDS ORDERED: TRAM50TA2 PO (12:44)
[2024-08-10] MEDS ORDERED: ACET32TAB PO (12:44)
[2024-08-10] MEDS ORDERED: SENNA 8.6 MG TAB PO SCH (21:00)
== END 2024-08-10 14:05 | disposition home or self-care (01) ==
LOC: EDSEX 22:01 → M ED 22:01 → EDBD 22:01 → M ED INP 22:02 → M MSPAV 08-10 06:02
PROVIDERS: ADMIT Student in an Organized Health Care Education/Training Program; ATTEND Internal Medicine
DX: S06.0X0A Concussion without loss of consciousness, initial encounter (principal); S22.22XA Fracture of body of sternum, initial encounter for closed fracture; S00.03XA Contusion of scalp, initial encounter; W07.XXXA Fall from chair, initial encounter; Y92.59 Other trade areas as the place of occurrence of the external cause; J44.9 Chronic obstructive pulmonary disease, unspecified; F41.9 Anxiety disorder, unspecified; F32.A Depression, unspecified; E66.9 Obesity, unspecified; Z79.899 Other long term (current) drug therapy
CPT/HCPCS: 36415; 70450; 71250; 72125; 80048; 80053; 80307; 82077; 83735; 85025; 85027; 96374; 96375; 97161; 97530; 99285; G0378; J0131; J1171; J1885

== ENCOUNTER → 2024-10-07 | Outpatient (CLI) | payer MEDICARE, MEDICAID ==
[~2024-10-07] MED LIST changes: +ACET32TAB PO; +HYDR-3490 PO; +HYDR-3719 PO; +IBUP-1114 PO; +NORV5TAB PO; +POTA-298 PO; +TRAM50TA2 PO
== END ==
LOC: M WUC 13:56
PROVIDERS: ATTEND Nurse Practitioner Adult Health
DX: J18.9 Pneumonia, unspecified organism (principal)

== ENCOUNTER → 2024-11-08 | Outpatient (CLI) | payer MEDICARE, MEDICAID | LOC: M RAD 13:15 | PROVIDERS: ATTEND Nurse Practitioner Adult Health | DX: S22.23XD Sternal manubrial dissociation, subsequent encounter for fracture with routine healing (principal) ==

== ENCOUNTER → 2024-11-23 | Outpatient (CLI) | payer MEDICARE, MEDICAID | LOC: M RAD 11:08 | PROVIDERS: ATTEND Nurse Practitioner Adult Health | DX: M25.511 Pain in right shoulder (principal); M19.041 Primary osteoarthritis, right hand; M75.51 Bursitis of right shoulder; M25.411 Effusion, right shoulder; M75.21 Bicipital tendinitis, right shoulder; M75.111 Incomplete rotator cuff tear or rupture of right shoulder, not specified as traumatic ==

== ENCOUNTER → 2024-12-17 | Outpatient (CLI) | payer MEDICARE, MEDICAID | LOC: M SLEEP 20:00 | PROVIDERS: ATTEND Internal Medicine Pulmonary Disease | DX: G47.33 Obstructive sleep apnea (adult) (pediatric) (principal) ==

== ENCOUNTER → 2024-12-24 | Outpatient (CLI) | payer MEDICARE, MEDICAID ==
[2024-12-24 13:49] LABS: INR 0.87
[2024-12-24 14:00] LABS: BASO # 0.0 10^3/uL (0.0-0.2); BASO % 0.4 % (0.0-1.0); EOS # 0.2 10^3/uL (0.0-0.5); EOS % 1.9 % (0.0-3.0); LYMPH # 2.4 10^3/uL (1.5-5.0); LYMPH % 24.6 % (24.0-44.0); MONO # 0.5 10^3/uL (0.0-0.8); MONO % 5.1 % (2.0-8.0); NEUTROPHILS # 6.6 10^3/uL (1.5-8.5); NEUTROPHILS % 67.0 % (36.0-66.0); PLATELET COUNT, AUTOMATED 263 10^3/uL (150-450)
[2024-12-24 14:11] LABS: APPEARANCE, URINE HAZY (CLEAR); BACTERIA, URINE AUTO 1+ (NEGATIVE); BILIRUBIN, URINE AUTO NEGATIVE (NEGATIVE); BLOOD, URINE BLOOD NEGATIVE (NEGATIVE); GLUCOSE, URINE (UA) AUTO NEGATIVE (NEGATIVE); KETONE, URINE AUTO NEGATIVE (NEGATIVE); LEUKOCYTE ESTERASE, URINE AUTO NEGATIVE (NEGATIVE); MUCUS, URINE SMALL (NEGATIVE); NITRITE, URINE AUTO NEGATIVE (NEGATIVE); PROTEIN, URINE AUTO NEGATIVE (NEGATIVE); RBC, URINE AUTO 0 /HPF (0-3); SPECIFIC GRAVITY URINE AUTO 1.008 (1.002-1.035); SQUAMOUS EPITHELIAL CELL UR AU 2 /HPF (0-6); UROBILINOGEN, URINE AUTO 0.2 mg/dL (0.0-2.0); WBC, URINE AUTO 1 /HPF (0-3)
[2024-12-24 14:44] LABS: C REACTIVE PROTEIN QUANTITATIV 0.99 MG/DL (<1.0)
[2024-12-24 14:48] LABS: ALT/SGPT 18.0 U/L (7.0-40); AST/SGOT 14.0 U/L (<34); CALCIUM LEVEL 9.4 MG/DL (8.3-10.6); CARBON DIOXIDE LEVEL 27.0 MMOL/L (20-31); CHLORIDE LEVEL 105.0 MMOL/L (98-107); CREATININE FOR GFR 0.74 MG/DL (0.55-1.30); GLOMERULAR FILTRATION RATE 88.6 (>45); POTASSIUM SERUM 4.3 MMOL/L (3.5-5.1); SODIUM LEVEL 139.0 MMOL/L (136-145); TOTAL 25(OH) VITAMIN D 41.5 NG/ML (20.0-100.0)
== END ==
LOC: M LAB 11:45
PROVIDERS: ATTEND Orthopaedic Surgery
DX: M19.011 Primary osteoarthritis, right shoulder (principal); R00.1 Bradycardia, unspecified; Z79.899 Other long term (current) drug therapy

== ENCOUNTER → 2025-02-13 | Outpatient (CLI) | payer MEDICARE, MEDICAID | LOC: M SLEEP 20:00 | PROVIDERS: ATTEND Internal Medicine Pulmonary Disease | DX: G47.33 Obstructive sleep apnea (adult) (pediatric) (principal) ==

== ENCOUNTER → 2025-02-26 | Outpatient (REF) | payer MEDICARE, MEDICAID ==
[2025-02-26 18:38] LABS: RSV AMPLIFICATION NEGATIVE (NEGATIVE)
== END ==
LOC: M LAB REF 17:28
DX: J20.9 Acute bronchitis, unspecified (principal)